=== PATIENT | male | born 1995 | race Caucasian/White ===

== ENCOUNTER 2018-11-07 14:18 | Day surgery (SDC) | payer OTHER ==
[~2018-11-07] VITALS: Ht 1 cm; Wt 107.8 kg
[2018-11-07 15:24] VITALS: BP 126/68; PULSE 72; TEMP 97.8
[2018-11-07] MEDS ORDERED: FLOMAX 0.40.4 MG/CAP PO (15:39)
[2018-11-07] MEDS ORDERED: CIPRO 500MG TA500 MG PO (15:40)
[2018-11-07 18:04] VITALS: BP 130/64; PULSE 64; TEMP 98.1
[2018-11-07 18:18] VITALS: BP 130/64; PULSE 60
[2018-11-07 18:33] VITALS: BP 143/61; PULSE 70
== END 2018-11-07 20:32 | disposition home or self-care (01) ==
LOC: SDCO 14:18 → SURG 18:03 → SDCO 20:32
DX: N20.1 Calculus of ureter (principal); Z84.1 Family history of disorders of kidney and ureter
CPT/HCPCS: OP; C1769; C2617; J0690; J1100; J1885; J2405; J2704; J3010; J7120; Q9967